=== PATIENT | male | born 1960 | race Caucasian/White ===

== ENCOUNTER 2020-07-21 10:21 | Inpatient (IN) | payer OTHER ==
[~2020-07-21] VITALS: Ht 167.6 cm; Wt 117.6 kg
[~2020-07-21 10:21] MED LIST: LISINOPRIL/HCTZ1 TAB PO; [UNRECOGNIZED DRUG - REMARK]
[2020-08-29] VITALS (11 sets, daily range): BP systolic 110–134; BP diastolic 56–93; PULSE 73–88; TEMP 97.9–98.7
[2020-08-29] MEDS ORDERED: COREG12.5 MG PO (07:35)
[2020-08-29] MEDS ORDERED: HYGROTON 2525 MG/TAB PO (07:36)
[2020-08-29] MEDS ORDERED: NORVASC 10MG10 MG PO (07:37)
[2020-08-29] MEDS ORDERED: ASPIRIN 81M81 MG/TA2 PO (07:38)
--- NOTE | 2020-08-29 13:00 | NUR ---
Patient up from OR. Alert and oriented x3. RLE with acewrap CMS intact, patient able to wiggle toes. Decreased sensation to LLE. Post op VSS and post op fluids infusing per orders. Spouse at bedside. Patient denies pain or further needs at this time.
--- NOTE | 2020-08-29 13:00 | NUR ---
Patient up from OR. Alert and oriented x 3. LLE with acewrap, CMS intact, patient able to wiggle toes. Patient states decreased sensation to RLE d/t block. Post op VSS and post op fluids infusing per orders. Spouse at bedside. Denies pain or further needs at this time.
--- NOTE | 2020-08-29 16:26 | NUR ---
Patient tolerated full liquid diet without difficulties, states he is still hungry. Advanced diet per orders
--- NOTE | 2020-08-29 18:05 | NUR ---
Patient has done well since up from OR. States mild pain 5/10 to left knee this afternoon, medications given per orders. Tolerating diet without difficulties. Denies further needs at this time. States he is starting to get sensation back to BLE. Will report off to contracts specialist.
[2020-08-30] VITALS (8 sets, daily range): BP systolic 114–135; BP diastolic 57–80; PULSE 68–84; TEMP 97.7–98.3
--- NOTE | 2020-08-30 01:02 | NUR ---
Patient laying in bed and watching TV upon shift start. Patient pleasant, alert and oriented. Patient reports pain to his left knee 5/10. Left knee covered with acewrap. Patient able to feel sensations and wiggle his left toes. Patient currently on 3L via NC. VS stable. No acute respiratory distress noted. PRN Oxycodone given at 21:54 pm. Assisted patient to get up and walk with a walker in the hallway around 22:00. Patient tolerated well.Call light within reach. Will continue to monitor.
--- NOTE | 2020-08-30 05:56 | NUR ---
Patient walked to the bathroom with a walker around 04:40 am to void. 1 person maximum assist needed for transfer. Patient c/o pain to his left knee 8 or 9 out of 10 upon ambulation. PRN Dilaudid given at 04:45 am for pain. Call light within reach. Will give report to day shift nurse.
[2020-08-30 06:35] LABS: HEMATOCRIT 37.9 % (42.0-52.0); HEMOGLOBIN 13.2 g/dl (13.5-18.0)
--- NOTE | 2020-08-30 08:46 | NUR ---
AM ASSESSMMENTS COMPLETE, PO PAIN MEDS GIVEN, PT RATING PAIN 5/10 AT THIS TIME. AGREE WITH STUDENT NURSE ASSESSMENTS THIS AM.
--- NOTE | 2020-08-30 10:00 | NUR ---
Pt. complains of 5/10 pain in L knee and L thigh throughout day. States "constant, achy feeling" bulky Dressing removed, no drainage noted, Aquacel applied to L knee. Teds applied to both legs. Up in chair. Worked with PT/OT. Walked with PT 100 ft. with steady gait. Denies need to use restroom, used urinal x 2 throughout morning.
--- NOTE | 2020-08-30 10:10 | NUR ---
DRESSING CHANGE COMPLETE. SURGICAL WOUND WELL APPROXIMATED. AQUACEL PLACED OVER INCISION. PT TOLERATED WELL. PT INSTUCTED ON SHOWERING WITH DRESSING IN PLACE.
--- NOTE | 2020-08-30 10:23 | NUR ---
[facility] met with the patient to discuss discharge plan. The patient lives in [place] with his , Susanna (ph#[phone]). He reports independence with ADLs and has a cane and walker. The patient's PCP is Dr. Swanson with the [facility] and he [facility] his medications from the [facility] and on [address]. The patient does not have a DPOA-HC in EMR, but he states that he does have one completed and that it designates his . The patient plans to return home with his and receive outpatient PT at [facility] upon discharge. No additional needs at this time.
--- NOTE | 2020-08-30 10:29 | NUR ---
Initial visit; Patient thanked Dump Grounds Checker for stopping in and offering God's blessings.
--- NOTE | 2020-08-30 22:50 | NUR ---
Patient pleasant, alert/oriented x4. Patient reports he is feeling much better compared to yesterday. Rated pain to his left knee area /. PRN Oxycodone given at 21:29 pm for pain. All scheduled meds given per SEP. Assessment completed. VS stable. No acute distress noted. Call light within reach. Patient denies any needs at this time.
[2020-08-31 00:42] VITALS: BP 124/75; PULSE 75; TEMP 97.9
[2020-08-31 04:00] VITALS: BP 116/77; PULSE 77; TEMP 97.8
--- NOTE | 2020-08-31 06:09 | NUR ---
PRN Oxycodone given at 05:29 am for left knee pain 12/21. Call light within reach. patient denies any needs at this time.
[2020-08-31 08:32] VITALS: BP 126/86; PULSE 81; TEMP 98.6
--- NOTE | 2020-08-31 09:46 | NUR ---
PT WORKING WITH THERAPY THIS AM. AQUACEL TO RIGHT KNEE CDI. PAIN WELL CONTROLLED WITH PO MEDS. AGREE WITH ASSESSMETNS BY JOSETTE MAGANA STUDENT.
[2020-08-31] MEDS ORDERED: NORCO 325 MG-7.1 TAB PO (12:59)
[2020-08-31] MEDS ORDERED: ASPI325T6 PO (12:59)
[2020-08-31] MEDS ORDERED: SENOKOT S 50 MG1 TAB PO (13:00)
[2020-08-31] MEDS ORDERED: ROXICODONE 55 MG/TAB PO (13:00)
--- NOTE | 2020-08-31 13:30 | NUR ---
DISCHARGE INSTUCTIONS REVIEWED WITH PT. QUESTIONS ANSWERED PT CALLED FOR RIDE.
--- NOTE | 2020-08-31 14:18 | NUR ---
PT LEFT PER WHEEL CHAIR WITH STAFF.
== END 2020-08-31 14:00 | disposition home or self-care (01) | DRG 470 ==
LOC: INPTSU 08-29 06:31 → JCC 08-29 06:31 → SURG 08-29 10:30 → JCC 08-29 13:29 → SURG 08-29 13:30 → JCC 08-31 14:00
PROVIDERS: ADMIT Orthopaedic Surgery
PROC: 0QP Lower Bones, Removal (ICD-10-PCS; 2020-08-29)
PROC: 0SRD0J9 Replacement of Left Knee Joint with Synthetic Substitute, Cemented, Open Approach (ICD-10-PCS; principal; 2020-08-29 10:30)
DX: M17.12 Unilateral primary osteoarthritis, left knee (principal); I10 Essential (primary) hypertension; E78.5 Hyperlipidemia, unspecified; Z79.891 Long term (current) use of opiate analgesic; G47.33 Obstructive sleep apnea (adult) (pediatric)
CPT/HCPCS: A9284; C1776; J0690; J1170; J1885; J2250; J2405; J2704; J3010; J7120